=== PATIENT | male | born 1935 | race Two or more races ===

== ENCOUNTER 2017-09-23 14:03 | Inpatient (IN) | payer OTHER ==
[~2017-09-23] VITALS: Ht 165.1 cm; Wt 86.2 kg
[2017-09-23 14:37] LABS: BASOPHILS % (AUTO) 0.5 % (0.0-2.0); EOSINOPHILS # (AUTO) 0.1 /CMM (0.0-0.7); HEMATOCRIT 32 % (39-51); HEMOGLOBIN 10.9 g/dL (13.5-17.5); LYMPHOCYTES # (AUTO) 1.2 /CMM (0.8-4.8); MEAN CORPUSCULAR HEMOGLOBIN 28 PG (26.0-33.0); MEAN CORPUSCULAR HGB CONC 35 g/dl (31.0-36.0); MEAN CORPUSCULAR VOLUME 81 fL (80-96); MONOCYTES # (AUTO) 0.8 /CMM (0.1-1.30); NEUTROPHILS # (AUTO) 7.3 /CMM (1.8-8.9); NEUTROPHILS % (AUTO) 76.5 % (43.0-81.0); PLATELET COUNT (AUTO) 272 /CMM (150-450); RDW COEFFICIENT OF VARIATION 15.8 (11.5-15.0); WHITE BLOOD COUNT (AUTO) 9.4 K/uL (4.3-11.0)
--- NOTE | 2017-09-23 14:40 | NUR ---
BIB SMART TEAM, PT PLACED ON 5150 HOLD FOR SUICIDAL IDEATION WITH PLAN TO RUN INTO CAR, NAD NOTED, VSS, WAITING FOR MD AKHTAR
[2017-09-23] MEDS ORDERED: TAMS-12 PO (14:45)
[2017-09-23] MEDS ORDERED: ALBU18HF2 IH (14:45)
[2017-09-23] MEDS ORDERED: ARIP5TAB10 PO (14:45)
[2017-09-23] MEDS ORDERED: ERGO500040 PO (14:45)
[2017-09-23] MEDS ORDERED: FURO20TA4 PO (14:45)
[2017-09-23] MEDS ORDERED: FLUT1DIS IH (14:45)
[2017-09-23] MEDS ORDERED: ALBUTEROL INH (14:45)
[2017-09-23] MEDS ORDERED: IPRATROPIUM INH (14:45)
[2017-09-23] MEDS ORDERED: CYAN10006 IM (14:51)
[2017-09-23] MEDS ORDERED: ATOR10TA PO (14:51)
[2017-09-23] MEDS ORDERED: METF500T4 PO (14:51)
[2017-09-23] MEDS ORDERED: OLAN20TA3 PO (14:51)
[2017-09-23] MEDS ORDERED: TOPI100T38 PO (14:51)
[2017-09-23] MEDS ORDERED: MOME17SP (14:51)
[2017-09-23] MEDS ORDERED: MONT10TA22 PO (14:51)
[2017-09-23] MEDS ORDERED: SERT100T PO (14:51)
[2017-09-23] MEDS ORDERED: LURA60TA PO (14:51)
[2017-09-23] MEDS ORDERED: LOSA25TA13 PO (14:51)
[2017-09-23] MEDS ORDERED: AMLO10TA2 PO (14:51)
[2017-09-23] MEDS ORDERED: GLIP5TAB13 PO (14:51)
[2017-09-23 15:01] LABS: ALANINE AMINOTRANSFERASE 38 U/L (12-78); ALBUMIN 3.4 g/dL (3.4-5.0); ALCOHOL, BLOOD 4 mg/dL (0-0); ALKALINE PHOSPHATASE 75 U/L (46-116); ASPARTATE AMINOTRANSFERASE 25 U/L (15-37); BILIRUBIN,DIRECT 0.1 mg/dL (0.0-0.2); BILIRUBIN,TOTAL 0.3 mg/dL (0.2-1.0); CALCIUM, SERUM 8.9 mg/dL (8.5-10.1); CARBON DIOXIDE 29 mmol/L (21-32); CHLORIDE 107 mmol/L (98-107); CREATININE 0.9 mg/dL (0.6-1.3); GLUCOSE 120 mg/dL (74-106); POTASSIUM 3.8 mmol/L (3.5-5.1); SODIUM SERUM 146 mmol/L (136-145); TOTAL PROTEIN, SERUM 6.9 g/dL (6.4-8.2); UREA NITROGEN, BLOOD 20 mg/dL (7-18)
[2017-09-23 15:16] LABS: SALICYLATE < 1.0 mg/dL (2.8-20.0)
[2017-09-23 15:17] LABS: ACETAMINOPHEN < 1 ug/ml (10-30)
--- NOTE | 2017-09-23 15:26 | NUR ---
CALLED NURSING SUP. FOR GPS BED
--- NOTE | 2017-09-23 15:52 | NUR ---
dr tracey to call patient's care provider dr west
--- NOTE | 2017-09-23 15:57 | NUR ---
URINE SENT TO LAB
[2017-09-23 16:07] LABS: APPEARANCE,URINE CLEAR (CLEAR); BILIRUBIN,URINE NEGATIVE (NEGATIVE); BLOOD, URINE NEGATIVE Ery/uL (NEGATIVE); COLOR,URINE YELLOW (YELLOW); KETONES,URINE NEGATIVE (NEGATIVE); LEUKOCYTE ESTERASE ,URINE TRACE (NEGATIVE); NITRITE, URINE NEGATIVE (NEGATIVE); PROTEIN,URINE NEGATIVE (NEGATIVE); UGLUCOSE NEGATIVE (NEGATIVE); UROBILINOGEN,URINE 0.2 EU/dL (0.2)
[2017-09-23 16:20] LABS: BACTERIA,URINE None seen /HPF (None Seen); MUCUS,URINE Moderate /LPF (None Seen); RBC,URINE 0-2 /HPF (0-2); SQUAMOUS EPITHELIAL CELL,UR Few /HPF (None Seen)
--- NOTE | 2017-09-23 17:56 | NUR ---
RN-CO: Called Dr Alvarez to obtain admitting orders for the patient. Dr Alvarez called and he gave his admitting orders. Paged Dr Jeison Espinal to reconcile home medications. Awaiting to call back Patient belongings was screened for contrabands. Valuables will be taken to the safe. He was showered by our staff in the unit. He ate dinner, and was oriented to all his "rights as a patient"
[2017-09-23] MEDS ORDERED: ACETAMINOPHEN 325 MG TABLET PO PRN (18:00)
[2017-09-23] MEDS ORDERED: MAG HYDROX/AL HYDROX/SIMETH 30 ML UDC PO PRN (18:00)
[2017-09-23] MEDS ORDERED: MAGNESIUM HYDROXIDE 30 ML UDC PO PRN (18:00)
[2017-09-23] MEDS ORDERED: ZOLPIDEM TARTRATE 5 MG TABLET PO PRN (18:00)
[2017-09-23] MEDS ORDERED: ALBUTEROL FS 2.5 MG/3 ML VIAL.NEB NEB PRN (19:30)
[2017-09-23 20:00] VITALS: BP 151/66
[2017-09-23] MEDS ORDERED: ERGOCALCIFEROL (VITAMIN D 2) 50,000 UNIT CAPSULE PO SCH (21:00)
--- NOTE | 2017-09-23 21:00 | NUR ---
GPS/RAT TRAPPER NOTES: PT. REFUSED SKIN ASSESSMENT. GETS AGITATED AND COMBATIVE. CHARGE NURSE MADE AWARE
[2017-09-24] MEDS ORDERED: DEXTROSE 50%-WATER 50 ML DISP.SYRIN IV PRN (02:00)
[2017-09-24 08:00] VITALS: BP 147/67
[2017-09-24] MEDS: BLOOD SUGAR DIAGNOSTIC 1 EACH STRIP IN SCH ×4 (08:48→22:20)
[2017-09-24] MEDS: MOMETASONE FUROATE NASAL SUSP 17 GM BOTTLE SCH (08:49)
[2017-09-24] MEDS: FLUTICASONE/VILANTEROL 1 EACH BLST.W.DEV IH SCH (08:49)
[2017-09-24 08:51] LABS: ALANINE AMINOTRANSFERASE 44 U/L (12-78); ALBUMIN 3.4 g/dL (3.4-5.0); ALKALINE PHOSPHATASE 84 U/L (46-116); ASPARTATE AMINOTRANSFERASE 36 U/L (15-37); BILIRUBIN,TOTAL 0.3 mg/dL (0.2-1.0); CALCIUM, SERUM 9.6 mg/dL (8.5-10.1); CARBON DIOXIDE 32 mmol/L (21-32); CHLORIDE 104 mmol/L (98-107); CREATININE 0.8 mg/dL (0.6-1.3); GLUCOSE 168 mg/dL (74-106); POTASSIUM 3.4 mmol/L (3.5-5.1); SODIUM SERUM 142 mmol/L (136-145); TOTAL PROTEIN, SERUM 7.4 g/dL (6.4-8.2); UREA NITROGEN, BLOOD 18 mg/dL (7-18)
[2017-09-24 08:56] LABS: CHOLESTEROL 127 mg/dL (<200); HDL CHOLESTEROL 56 mg/dL (40-60); LDL 58 mg/dL (0-99); TRIGLYCERIDES 68 mg/dL (30-150)
--- NOTE | 2017-09-24 10:00 | NUR ---
GPS/RN PT REFUSED SKIN ASSESSMENT IN AM.
[2017-09-24] MEDS ORDERED: POTASSIUM CHLORIDE 20 MEQ TAB.PRT.SR PO ONE (12:00)
[2017-09-24] MEDS: METFORMIN 500 MG TABLET PO SCH ×2 (12:02→16:33)
[2017-09-24] MEDS: FUROSEMIDE 20 MG TABLET PO SCH (12:02)
[2017-09-24] MEDS: glipiZIDE 5 MG TABLET PO SCH ×2 (12:09→16:33)
[2017-09-24] MEDS: AMLODIPINE BESYLATE 10 MG TABLET PO SCH (12:12)
[2017-09-24] MEDS: ATORVASTATIN 10 MG TABLET PO SCH (12:13)
[2017-09-24] MEDS: TAMSULOSIN 0.4 MG CAP.SR.24H PO SCH (12:15)
[2017-09-24] MEDS: LOSARTAN POTASSIUM 25 MG TABLET PO SCH (12:15)
--- NOTE | 2017-09-24 12:37 | NUR ---
Initial Discharge Plan: Pt lives at [address] [facility] [id number] and does not have a telephone number. Pt lives with his Kavita, a son, nephew and grandaughter. Pt would like to return home upon discharge. ABNER spoke to pts son, Luis Enrique . Per conversation with son he is in agreement with his father returning home upon discharge.
--- NOTE | 2017-09-24 12:47 | NUR ---
GPS/RN pt refused accucheck for 1200 offered x3
[2017-09-24] MEDS: OLANZAPINE 5 MG/TAB.RAPDIS PO SCH ×2 (14:58→21:49)
[2017-09-24 16:00] VITALS: BP 158/84
[2017-09-24] MEDS: MONTELUKAST SODIUM (10MG) 10 MG TABLET PO SCH (17:54)
--- NOTE | 2017-09-24 18:20 | NUR ---
GPS/RN REDNESS AND SUPERFICIAL SKIN ABRASION FOUND ON SACRAL AREA. REMEDY ZGUARD APPLIED WOUND CONSULT ORDERED, PICTURE TAKEN. PT IS SELF TURNING IN THE BED. WILL ENDORSE TO ORCHESTRA MUSICIAN TO FOLLOW UP AND TO ENCOURAGE PT TO TURN Q2 HOURS
[2017-09-24 20:00] VITALS: BP 143/75
[2017-09-24] MEDS: TOPIRAMATE 100 MG TABLET PO SCH (21:49)
[2017-09-24] MEDS: Z GUARD REMEDY 2 OZ OINT TP SCH (21:51)
[2017-09-25 08:00] VITALS: BP 160/99
--- NOTE | 2017-09-25 08:00 | NUR ---
GPS/RN RECEIVED PT IN GERICHAIR IN ACTIVITY ROOM NO ACUTE DISTRESS. MED COMPLIANT
[2017-09-25] MEDS: INSULIN REGULAR, HUMAN 100 UNIT/ML 3 ML VIAL SQ PRN ×2 (08:06→22:56)
[2017-09-25] MEDS: METFORMIN 500 MG TABLET PO SCH ×2 (08:07→16:06)
[2017-09-25] MEDS: ATORVASTATIN 10 MG TABLET PO SCH (08:07)
[2017-09-25] MEDS: glipiZIDE 5 MG TABLET PO SCH ×2 (08:07→16:06)
[2017-09-25] MEDS: MOMETASONE FUROATE NASAL SUSP 17 GM BOTTLE SCH (08:08)
[2017-09-25] MEDS: FLUTICASONE/VILANTEROL 1 EACH BLST.W.DEV IH SCH (08:08)
[2017-09-25] MEDS: OLANZAPINE 5 MG/TAB.RAPDIS PO SCH ×2 (08:08→21:48)
[2017-09-25] MEDS: BLOOD SUGAR DIAGNOSTIC 1 EACH STRIP IN SCH ×4 (08:08→22:59)
[2017-09-25] MEDS: FUROSEMIDE 20 MG TABLET PO SCH (08:09)
[2017-09-25] MEDS: AMLODIPINE BESYLATE 10 MG TABLET PO SCH (08:10)
[2017-09-25] MEDS: LOSARTAN POTASSIUM 25 MG TABLET PO SCH (08:10)
[2017-09-25] MEDS: SERTRALINE HCL 50 MG TABLET PO SCH (08:12)
[2017-09-25] MEDS: TAMSULOSIN 0.4 MG CAP.SR.24H PO SCH (08:12)
[2017-09-25] MEDS: TOPIRAMATE 100 MG TABLET PO SCH ×2 (08:12→21:48)
[2017-09-25] MEDS: Z GUARD REMEDY 2 OZ OINT TP SCH ×4 (09:01→21:51)
[2017-09-25] MEDS: LORAZEPAM 0.5 MG TABLET PO PRN (10:02)
--- NOTE | 2017-09-25 10:30 | NUR ---
GPS/RN PT TRANSFERRED TO THE BED IN HIS ROOM.
[2017-09-25 15:57] VITALS: BP 136/83
--- NOTE | 2017-09-25 17:30 | NUR ---
GPS/RN PT BECOME AGRESSIVE FOLLOWING DIAPER CHANGE/SKIN CARE AND REFUSED ACCUCHECK. OFFERED X3
[2017-09-25] MEDS: MONTELUKAST SODIUM (10MG) 10 MG TABLET PO SCH (17:40)
[2017-09-25 21:05] VITALS: BP 119/72
--- NOTE | 2017-09-26 04:31 | NUR ---
GPS RN NOTES DURING SHIFT OFFERED PT. SLEEPING PILLS ,PT. REFUESD TO TAKE SLEEPING PILLS
[2017-09-26 08:00] VITALS: BP 153/86
[2017-09-26] MEDS: SERTRALINE HCL 50 MG TABLET PO SCH (08:36)
[2017-09-26] MEDS: ATORVASTATIN 10 MG TABLET PO SCH (08:37)
[2017-09-26] MEDS: OLANZAPINE 5 MG/TAB.RAPDIS PO SCH ×2 (08:37→21:30)
[2017-09-26] MEDS: FUROSEMIDE 20 MG TABLET PO SCH (08:37)
[2017-09-26] MEDS: METFORMIN 500 MG TABLET PO SCH ×2 (08:37→17:17)
[2017-09-26] MEDS: TAMSULOSIN 0.4 MG CAP.SR.24H PO SCH (08:37)
[2017-09-26] MEDS: TOPIRAMATE 100 MG TABLET PO SCH ×2 (08:37→21:30)
[2017-09-26] MEDS: LOSARTAN POTASSIUM 25 MG TABLET PO SCH (08:38)
[2017-09-26] MEDS: glipiZIDE 5 MG TABLET PO SCH ×2 (08:38→17:17)
[2017-09-26] MEDS: AMLODIPINE BESYLATE 10 MG TABLET PO SCH (08:38)
[2017-09-26] MEDS: Z GUARD REMEDY 2 OZ OINT TP SCH ×4 (08:39→21:30)
[2017-09-26] MEDS: FLUTICASONE/VILANTEROL 1 EACH BLST.W.DEV IH SCH (08:47)
[2017-09-26] MEDS: INSULIN REGULAR, HUMAN 100 UNIT/ML 3 ML VIAL SQ PRN ×3 (08:48→21:39)
[2017-09-26] MEDS: BLOOD SUGAR DIAGNOSTIC 1 EACH STRIP IN SCH ×4 (08:50→21:33)
--- NOTE | 2017-09-26 09:00 | NUR ---
GPS/RN BS 151, ADMINISTERED 2 UNITS REGULAR INSULIN.
[2017-09-26] MEDS: MOMETASONE FUROATE NASAL SUSP 17 GM BOTTLE SCH (09:21)
[2017-09-26 15:56] VITALS: BP 144/72
--- NOTE | 2017-09-26 17:30 | NUR ---
GPS/RN BS 138, ADMINISTERED 2 UNITS REGULAR INSULIN.
[2017-09-26] MEDS: MONTELUKAST SODIUM (10MG) 10 MG TABLET PO SCH (18:02)
[2017-09-26 19:57] VITALS: BP 128/70
[2017-09-27 08:00] VITALS: BP 134/68
[2017-09-27] MEDS: TAMSULOSIN 0.4 MG CAP.SR.24H PO SCH (08:58)
[2017-09-27] MEDS: BLOOD SUGAR DIAGNOSTIC 1 EACH STRIP IN SCH ×4 (08:58→22:46)
[2017-09-27] MEDS: FUROSEMIDE 20 MG TABLET PO SCH (08:59)
[2017-09-27] MEDS: OLANZAPINE 5 MG/TAB.RAPDIS PO SCH ×2 (08:59→21:14)
[2017-09-27] MEDS: ATORVASTATIN 10 MG TABLET PO SCH (08:59)
[2017-09-27] MEDS ORDERED: SERTRALINE HCL 50 MG TABLET PO SCH (09:00)
[2017-09-27] MEDS: glipiZIDE 5 MG TABLET PO SCH ×2 (09:00→16:51)
[2017-09-27] MEDS: AMLODIPINE BESYLATE 10 MG TABLET PO SCH (09:00)
[2017-09-27] MEDS: METFORMIN 500 MG TABLET PO SCH ×2 (09:00→16:51)
[2017-09-27] MEDS: LOSARTAN POTASSIUM 25 MG TABLET PO SCH (09:01)
[2017-09-27] MEDS: Z GUARD REMEDY 2 OZ OINT TP SCH ×4 (09:01→21:14)
[2017-09-27] MEDS: FLUTICASONE/VILANTEROL 1 EACH BLST.W.DEV IH SCH (09:01)
[2017-09-27] MEDS: MOMETASONE FUROATE NASAL SUSP 17 GM BOTTLE SCH (09:01)
--- NOTE | 2017-09-27 09:17 | NUR ---
Discharge planning: SW spoke to Pam Cabello from [facility] [employer] who informed SW that placement for pt would be arranged through their insurance. Per Pam, Pts outside psychiatrist requested pt be placed in one of their locked psychiatric skilled facilities ([facility], [facility] or [facility]). SW faxed clinicals (face sheet, H&P, medication list, P&P and 5150 hold) to . Per Pam, transportation would be arranged through their insurance. SW will follow up with provider for discharge planning purposes.
[2017-09-27] MEDS: TOPIRAMATE 100 MG TABLET PO SCH ×2 (10:07→21:13)
--- NOTE | 2017-09-27 10:25 | NUR ---
UR Review: ABNER faxed initial clinicals (face sheet, 5150 hold, medical H&P, medication list, and P&P) to [facility] on this date. ABNER will follow up with Resource Forester to ensure fax was received.
--- NOTE | 2017-09-27 10:42 | NUR ---
GPS/RN BS, 131, PATIENT COMBATIVE UPON APPROACH, REFUSED INSULIN 2 UNITS X 3, EXPLAINED RISKS AND BENEFITS, WILL CONTINUE TO MONITOR.
--- NOTE | 2017-09-27 11:05 | NUR ---
WOUND CARE CONSULT: PT PRESENTS WITH INCONTINENCE AND SOME PIGMENTATION IRREGULARITIES TO BUTTOCKS AND PENIS AREAS. BLANCHING REDNESS NOTED TO SACRAL AREA. CURRENT RUBENS SCORE IS 18. RECOMMENDATIONS MADE FOR SKIN PROTECTION. DISCUSSED WITH NURSING STAFF. WILL SEE PRN. BARNES IN AGREEMENT WITH PLAN OF CARE. Addendum: 09/27/17 at 1108 by SARBJIT CORDERO WNDNU Amended: Links added.
[2017-09-27] MEDS: LORAZEPAM 0.5 MG TABLET PO PRN (12:06)
[2017-09-27 15:43] VITALS: BP 141/80
--- NOTE | 2017-09-27 17:45 | NUR ---
GPS/RN PATIENT REFUSED SINGULAIR 10 MG X3, EXPLAINED RISKS AND BENEFITS,WILL CONTINUE TO ENCOURAGE TO COMPLY WITH MD REGIMEN.
[2017-09-27] MEDS: MONTELUKAST SODIUM (10MG) 10 MG TABLET PO SCH (18:00)
[2017-09-27 20:43] VITALS: BP 137/68
[2017-09-27] MEDS: INSULIN REGULAR, HUMAN 100 UNIT/ML 3 ML VIAL SQ PRN (23:03)
[2017-09-28] MEDS: BLOOD SUGAR DIAGNOSTIC 1 EACH STRIP IN SCH ×4 (07:31→21:57)
[2017-09-28] MEDS: INSULIN REGULAR, HUMAN 100 UNIT/ML 3 ML VIAL SQ PRN (07:32)
[2017-09-28] MEDS: FLUTICASONE/VILANTEROL 1 EACH BLST.W.DEV IH SCH (08:08)
[2017-09-28] MEDS: TAMSULOSIN 0.4 MG CAP.SR.24H PO SCH (08:08)
[2017-09-28] MEDS: AMLODIPINE BESYLATE 10 MG TABLET PO SCH (08:09)
[2017-09-28] MEDS: METFORMIN 500 MG TABLET PO SCH ×2 (08:09→16:13)
[2017-09-28] MEDS: LOSARTAN POTASSIUM 25 MG TABLET PO SCH (08:09)
[2017-09-28] MEDS: MOMETASONE FUROATE NASAL SUSP 17 GM BOTTLE SCH (08:09)
[2017-09-28] MEDS: OLANZAPINE 5 MG/TAB.RAPDIS PO SCH ×2 (08:09→21:23)
[2017-09-28] MEDS: glipiZIDE 5 MG TABLET PO SCH ×2 (08:10→16:13)
[2017-09-28] MEDS: Z GUARD REMEDY 2 OZ OINT TP SCH ×4 (08:10→21:23)
[2017-09-28] MEDS: FUROSEMIDE 20 MG TABLET PO SCH (08:10)
[2017-09-28] MEDS: ATORVASTATIN 10 MG TABLET PO SCH (08:10)
[2017-09-28] MEDS: TOPIRAMATE 100 MG TABLET PO SCH ×2 (08:20→21:22)
[2017-09-28 09:35] VITALS: BP 140/78
--- NOTE | 2017-09-28 16:32 | NUR ---
GPS RN NOTE: PATIENT HAD LOOSE STOOLS X5,STOOL COLLECTED AND ORDERS PLACED FOR C-DIFF. DR BAXTER NOTIFIED WAITING FOR RESULT.
[2017-09-28 16:33] VITALS: BP 158/87
--- NOTE | 2017-09-28 16:39 | NUR ---
Discharge Planning: ABNER contacted Pam Cabello from [facility] for discharge planning purposes. Per Pam, they had not heard back from any of the facilities however expected a response by tomorrow. ABNER will fax updated clinicals on this date to insurance provider fax. ABNER will follow up tomorrow.
--- NOTE | 2017-09-28 16:45 | NUR ---
Discharge Planning: SW contacted pts son Luis Enrique Snider for discharge planning purposes. SW provided pts son with an update regarding plan for discharge, including orders from the psychiatrist regarding placement for his father (per reports from Pam Cabello from [facility]). Per Pam, pt was approved for a locked detention facility to address pts mental health issues. Placement would be arranged through their insurance provider. SW will follow up.
[2017-09-28] MEDS: MONTELUKAST SODIUM (10MG) 10 MG TABLET PO SCH (17:40)
[2017-09-28 20:16] VITALS: BP 142/75
[2017-09-29 08:00] VITALS: BP 139/80
[2017-09-29] MEDS: BLOOD SUGAR DIAGNOSTIC 1 EACH STRIP IN SCH ×4 (08:10→22:00)
[2017-09-29] MEDS: TOPIRAMATE 100 MG TABLET PO SCH ×2 (08:11→20:25)
[2017-09-29] MEDS: glipiZIDE 5 MG TABLET PO SCH ×2 (08:11→16:13)
[2017-09-29] MEDS: ATORVASTATIN 10 MG TABLET PO SCH (08:11)
[2017-09-29] MEDS: FUROSEMIDE 20 MG TABLET PO SCH (08:11)
[2017-09-29] MEDS: LOSARTAN POTASSIUM 25 MG TABLET PO SCH (08:11)
[2017-09-29] MEDS: AMLODIPINE BESYLATE 10 MG TABLET PO SCH (08:11)
[2017-09-29] MEDS: TAMSULOSIN 0.4 MG CAP.SR.24H PO SCH (08:12)
[2017-09-29] MEDS: FLUTICASONE/VILANTEROL 1 EACH BLST.W.DEV IH SCH (08:12)
[2017-09-29] MEDS: OLANZAPINE 5 MG/TAB.RAPDIS PO SCH ×2 (08:12→20:25)
[2017-09-29] MEDS: MOMETASONE FUROATE NASAL SUSP 17 GM BOTTLE SCH (08:12)
[2017-09-29] MEDS: Z GUARD REMEDY 2 OZ OINT TP SCH ×4 (08:13→20:26)
[2017-09-29] MEDS: METFORMIN 500 MG TABLET PO SCH ×2 (08:14→16:13)
[2017-09-29] MEDS: INSULIN REGULAR, HUMAN 100 UNIT/ML 3 ML VIAL SQ PRN (11:33)
--- NOTE | 2017-09-29 14:03 | NUR ---
Discharge Planning: SW contacted pts son Luis Enrique Snider for discharge planning purposes. SW informed pts son that Dr. Alvarez, pts psychiatrist had cleared pt for discharge in order to arrange for family to pick pt up. Pts son provided Sw with ;s telephone # [phone]. SW called pts and left a detailed message. SW will follow up to ensure pt is properly and safely discharged.
[2017-09-29 15:42] VITALS: BP 129/59
[2017-09-29] MEDS: MONTELUKAST SODIUM (10MG) 10 MG TABLET PO SCH (17:09)
--- NOTE | 2017-09-29 17:12 | NUR ---
GPS RN NOTE: PT HAS 2 LOOSE STOOLS THIS SHIFT NO NEW ORDERS
[2017-09-29 20:00] VITALS: BP 137/63
--- NOTE | 2017-09-29 23:10 | NUR ---
Accucheck = 100 mg/dl, no insulin due at this time
[2017-09-30] MEDS: BLOOD SUGAR DIAGNOSTIC 1 EACH STRIP IN SCH ×2 (07:45→12:02)
[2017-09-30 08:00] VITALS: BP 127/71
[2017-09-30] MEDS: Z GUARD REMEDY 2 OZ OINT TP SCH ×3 (09:00→16:41)
[2017-09-30] MEDS: TAMSULOSIN 0.4 MG CAP.SR.24H PO SCH (09:02)
[2017-09-30] MEDS: AMLODIPINE BESYLATE 10 MG TABLET PO SCH (09:03)
[2017-09-30] MEDS: LOSARTAN POTASSIUM 25 MG TABLET PO SCH (09:03)
[2017-09-30] MEDS: FUROSEMIDE 20 MG TABLET PO SCH (09:04)
[2017-09-30] MEDS: METFORMIN 500 MG TABLET PO SCH ×2 (09:04→16:30)
[2017-09-30] MEDS: glipiZIDE 5 MG TABLET PO SCH ×2 (09:04→16:30)
[2017-09-30] MEDS: ATORVASTATIN 10 MG TABLET PO SCH (09:05)
[2017-09-30] MEDS: OLANZAPINE 5 MG/TAB.RAPDIS PO SCH (09:05)
[2017-09-30] MEDS: TOPIRAMATE 100 MG TABLET PO SCH (09:05)
--- NOTE | 2017-09-30 09:11 | NUR ---
Discharge Planning: SW contacted pts Kavita Snider for discharge planning purposes. Per , pt will be picked up from the hospital today after 5pm. Pts will call back to provide an exact time as well as who will be picking him up. SW will follow up.
[2017-09-30] MEDS: FLUTICASONE/VILANTEROL 1 EACH BLST.W.DEV IH SCH (11:36)
[2017-09-30] MEDS: MOMETASONE FUROATE NASAL SUSP 17 GM BOTTLE SCH (14:44)
[2017-09-30 17:10] VITALS: BP 129/70
--- NOTE | 2017-09-30 17:26 | NUR ---
Discharge note: 82 YEAR OLD MALE DISCHARGED TO HOME IN STABLE CONDITION. COMPLIANT WITH MEDICATIONS, COOPERATIVE WITH TREATMENT PLANS. PATIENT DENIES SI/HI. BEHAVIOR IMPROVED, PSYCHIATRIC TX PLANS MET, MEDICAL TX PLANS DEFERRED FOR CONTINUAL MONITORING. EDUCATED THE FAMILY ABOUT CARE PLAN AND COPY PROVIDED, VERBALIZED UNDERSTANDING. RETURNED PERSONAL BELONGINGS TO PATIENT. WOUND PICTURES TAKEN AND DOCUMENTED. PSYCHIATRIST ORDERED TO DISCONTINUE HOLD AND TO DISCHARGE PATIENT. HEALTHCARE ECONOMICS MANAGER MADE AWARE OF DISCHARGE. PATIENT ESCORTED TO LOBBY WITH FAMILY.
--- NOTE | 2017-10-03 09:12 | NUR ---
Discharge Note: Discharge 09/30/2017 Snow Snider: Patient will be discharged home, [address] [facility] [id number] via private transportation at 5 pm. Pts stephanieece Linda Snider will be picking pt up. Pt and pts , Kavita have been notified and are in agreement. Survey And Mapping Technician: Dr. Taylor Eden; [address] [address]. Pt has an appointment with the doctor on 10/12/2017 @ 2:15 pm. Psychiatrist: NAI Lee; [id number] [place] [address]. Pt has an appointment with the doctor on 10/07/2017 @ 2:30 pm.
== END 2017-09-30 17:15 | disposition home or self-care (01) | DRG 885 ==
LOC: ER 14:05 → GPS 16:43
PROVIDERS: ADMIT Psychiatry & Neurology Psychiatry; ATTEND Psychiatry & Neurology Psychiatry
DX: F29 Unspecified psychosis not due to a substance or known physiological condition (principal); F03.91 Unspecified dementia, unspecified severity, with behavioral disturbance; R45.851 Suicidal ideations; E87.1 Hypo-osmolality and hyponatremia; E11.9 Type 2 diabetes mellitus without complications; D64.9 Anemia, unspecified; E78.5 Hyperlipidemia, unspecified; E87.6 Hypokalemia; F03.90 Unspecified dementia, unspecified severity, without behavioral disturbance, psychotic disturbance, mood disturbance, and anxiety; F41.9 Anxiety disorder, unspecified; I10 Essential (primary) hypertension; J45.909 Unspecified asthma, uncomplicated; K21.9 Gastro-esophageal reflux disease without esophagitis; Z79.84 Long term (current) use of oral hypoglycemic drugs; Z79.899 Other long term (current) drug therapy; J44.9 Chronic obstructive pulmonary disease, unspecified; I70.0 Atherosclerosis of aorta
CPT/HCPCS: 36415; 80048-TC; 80053-TC; 80061-TC; 80076-TC; 80305; 81000-TC; 82962-TC; 84443-TC; 85025-TC; 87081-TC; A4606; G0480; J1815; Z7610